=== PATIENT | female | born 1960 ===

== ENCOUNTER 2023-05-24 14:08 | Emergency (ER) | payer BC, OTHER ==
[2023-05-24] MEDS ORDERED: Acetaminophen 500 MG Tab PO ONE (14:13)
== END 2023-05-24 15:10 | disposition home or self-care (01) ==
LOC: CC.ED 14:08
DX: S00.81XA Abrasion of other part of head, initial encounter (principal); W18.09XA Striking against other object with subsequent fall, initial encounter
CPT/HCPCS: 73030-RT; 99283; A9270-GY